=== PATIENT | male | born 1995 | race Two or more races ===

== ENCOUNTER 2018-06-15 21:23 | Emergency (ER) | payer MEDICAID, OTHER ==
[~2018-06-15] VITALS: Ht 175.3 cm; Wt 77.6 kg
[2018-06-15] MEDS ORDERED: ETOMIDATE (2MG/ML) 20ML VIAL IV ONE (22:45)
[2018-06-16 00:33] VITALS: BP 131/78
== END 2018-06-16 00:44 | disposition home or self-care (01) ==
LOC: ER 21:32
DX: S43.084A Other dislocation of right shoulder joint, initial encounter (principal); X58.XXXA Exposure to other specified factors, initial encounter; Y93.89 Activity, other specified; Y99.8 Other external cause status; Y92.89 Other specified places as the place of occurrence of the external cause
CPT/HCPCS: 23655; 73020; 73030

== ENCOUNTER 2018-06-18 16:41 | Emergency (ER) | payer MEDICAID ==
[~2018-06-18] VITALS: Ht 175.3 cm; Wt 78.0 kg
[2018-06-18 21:20] VITALS: BP 107/78
== END 2018-06-18 21:45 | disposition home or self-care (01) ==
LOC: ER 16:41
DX: S43.004D Unspecified dislocation of right shoulder joint, subsequent encounter (principal); X58.XXXD Exposure to other specified factors, subsequent encounter

== ENCOUNTER 2018-08-21 18:09 | Emergency (ER) | payer MEDICAID ==
[~2018-08-21] VITALS: Ht 175.3 cm; Wt 78.0 kg
[2018-08-21 18:20] VITALS: BP 141/87
== END 2018-08-21 21:39 | disposition home or self-care (01) ==
LOC: ER 18:12
DX: S43.401A Unspecified sprain of right shoulder joint, initial encounter (principal); X50.1XXA Overexertion from prolonged static or awkward postures, initial encounter; Y93.89 Activity, other specified; Y99.8 Other external cause status; Y92.89 Other specified places as the place of occurrence of the external cause
CPT/HCPCS: 73030

== ENCOUNTER 2019-02-21 08:58 | Emergency (ER) | payer MEDICAID ==
[~2019-02-21] VITALS: Ht 160 cm; Wt 78.5 kg
[2019-02-21 09:17] VITALS: BP 111/60
== END 2019-02-21 10:48 | disposition home or self-care (01) ==
LOC: ER 09:01
DX: S46.911D Strain of unspecified muscle, fascia and tendon at shoulder and upper arm level, right arm, subsequent encounter (principal); F17.210 Nicotine dependence, cigarettes, uncomplicated; X58.XXXD Exposure to other specified factors, subsequent encounter

== ENCOUNTER 2019-05-08 12:15 | Emergency (ER) | payer MEDICAID ==
[~2019-05-08] VITALS: Ht 175.3 cm; Wt 82.6 kg
[2019-05-08 16:56] VITALS: BP 125/72
== END 2019-05-08 16:58 | disposition home or self-care (01) ==
LOC: ER 12:15
DX: L30.9 Dermatitis, unspecified (principal); F17.210 Nicotine dependence, cigarettes, uncomplicated

== ENCOUNTER 2020-05-22 15:05 | Emergency (ER) | payer MEDICAID, OTHER ==
[~2020-05-22] VITALS: Ht 175.3 cm; Wt 83.9 kg
[2020-05-22 17:31] VITALS: BP 122/74
== END 2020-05-22 17:33 | disposition home or self-care (01) ==
LOC: ER 15:05
DX: J06.9 Acute upper respiratory infection, unspecified (principal)
CPT/HCPCS: 71045

== ENCOUNTER 2021-05-06 11:33 | Emergency (ER) | payer MEDICAID, OTHER ==
[~2021-05-06] VITALS: Ht 177.8 cm; Wt 90.7 kg
[2021-05-06 12:29] VITALS: BP 152/92
== END 2021-05-06 14:06 | disposition home or self-care (01) ==
LOC: ER 11:33
DX: R51.9 Headache, unspecified (principal); Z20.822 Contact with and (suspected) exposure to COVID-19
CPT/HCPCS: 36415; 87426